=== PATIENT | female | born 1985 | race Caucasian/White ===

== ENCOUNTER 2017-08-22 09:29 | Emergency (ER) | payer OTHER ==
[2017-08-22 09:57] VITALS: BMI 39.3
--- NOTE | 2017-08-22 11:31 | PDOC ---
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 She endorses associated pain and erythema with her abscesses. She presented to [facility] where she was given 2 antibiotics that she has been taking and reports improvement in the redness of the lesions, but reports she came today due to the pain and inability to f/u with surgery referral due to insurance. The patient denies fever or chills. She denies chest pain or shortness of breath. She denies nausea or vomiting. She reports that her sister also has recurrent abscesses in her groin and axilla. Pt is an active smoker. Allergies: Penicillins PCP: Dr. Larissa Engle - Physicial Exam PE: 08/22/17 13:09 agree with resident exam - Medical Decision Making 08/22/17 12:09 32-year-old female presents with recurrent abscesses. Vitals initially remarkable for tachycardia to 104, on my evaluation heart rate is 92. Exam consistent with likely hidradenitis although pt states she has never been diagnosed. Pt states lesions improving with antibiotics, however she presents today due to pain and inability to get f/u with surgery for insurance issues. Case discussed with Dr. Villarreal for definitive management of lesions who states that Dr. Saldaña will see the pt 08/22/17 13:19 Pt offered toradol for pain control, but is very upset at this time waiting for surgery consultation because she wants to eat. She declines toradol. Informed patient that surgery c/s is on her way in to see her, she agrees to stay at this time. 08/22/17 14:23 Surgery c/s not yet arrived. Pt ambulating in the ED, demanding to eat as she is hungry. Pt is cursing and yelling in hallways. Security at bedside, discussed with patient that she can not yell or curse in the ED. Pt also left the ED multiple times to smoke cigarettes as seen by nursing staff. Offered to patient to await surgery c/s until they arrive without being disruptive or we can DC her with a referral for surgery if this is her preference. She chooses to stay at this time. 08/22/17 15:[address] Saldaña from surgery. Pt offered to have I&D in the ED, with VNS to pack it daily for definitive management. Pt states that she will not allow VNS to enter her apartment and declines all current treatment. Dr. Saldaña states that due to the large size of the gluteal abscess, she will need daily packing changes for up to 6 weeks, however she is not amenable to VNS visiting her. Surgery recommends only antibiotics at this time as pt declines all further care. We called the patients pharmacy and found she is on doxy/bactrim which is sufficient coverage per surgery. Pt requests DC. Will provide surgery referral, pt stable and well appearing. Advised her to return if she changes her mind about drainage, and VNS arrangements. I discussed the physical exam findings, ancillary test results and final diagnoses with the patient. I answered all of the patient's questions. The patient felt comfortable with the discharge plan and treatment plan. The patient will call their primary care physician within 24 hours to arrange follow -up and will return to the Emergency Department with any new, persistent or worsening symptoms.
--- NOTE | 2017-08-22 11:35 | PDOC ---
History of Present Illness - General Chief Complaint: Abscess Boil Stated Complaint: ABSCESS Time Seen by Provider: 08/22/17 10:09 - History of Present Illness Initial Comments: 08/22/17 11:23 32 yo F with no significant pmh who p/w abscesses. Patient reports worsening R axilla abscess ( x1 month) with now resolved drainage of the R axilla, resolving and recurring. Patient also reports abscess of R sided gluteal cleft with abscess drainage. Patient with recurrent BL axillary abscess formation x 10 +, intermittent, with spontaneous resolution and recurrence. H/o left abscess I& D. Patient states that this is first time she has had abscess at gluteal region. Endorses increased pain and redness. Recently evaluated at [facility] (08-18-17) and discharged on outpt. antibiotics x 2ABs ( does not recall name ). No I&D performed in ED. Denies F/C, N/V, CP, SOB, abdominal pain, diarrhea, constipation, urinary complaints, weakness, lightheadedness, sensory changes PMHx: as noted above. Denies h/o DM. ROS: as noted above. SHx: Endorses tobacco use 1/2 ppd for 16 years. Denies Etoh, or IVDA. Recreational marijuana use. Allergies: PCN Past History - Past Medical History Allergies/Adverse Reactions: Allergies Allergy/AdvReac Type Severity Reaction Status Date / Time Penicillins Allergy Verified 08/22/17 09:54 Home Medications: Ambulatory Orders Unobtainable [Unobtainable] 08/22/17 - Suicide/Smoking/Psychosocial Hx Smoking History: Current every day smoker Number of Cigarettes Smoked Daily: 20 Information on smoking cessation initiated: Yes Review of Systems - Review of Systems Comments:: 08/22/17 11:35 GENERAL/CONSTITUTIONAL: No fever or chills. No weakness. HEAD, EYES, EARS, NOSE AND THROAT: No change in vision. No ear pain or discharge. No sore throat. CARDIOVASCULAR: No chest pain or shortness of breath RESPIRATORY: No cough, wheezing, or hemoptysis. GASTROINTESTINAL: No nausea, vomiting, diarrhea or constipation. GENITOURINARY: No dysuria, frequency, or change in urination. MUSCULOSKELETAL: No joint or muscle swelling or pain. No neck or back pain. SKIN:+ Abscess. NEUROLOGIC: No headache, vertigo, loss of consciousness, or change in strength/ sensation. ENDOCRINE: No increased thirst. No abnormal weight change HEMATOLOGIC/LYMPHATIC: No anemia, easy bleeding, or history of blood clots. ALLERGIC/IMMUNOLOGIC: No hives or skin allergy. *Physical Exam - Vital Signs Last Vital Signs Temp Pulse Resp BP Pulse Ox 98.2 F 104 H 16 104/78 99 08/22/17 09:54 08/22/17 09:54 08/22/17 09:54 08/22/17 09:54 08/22/17 09:54 - Physical Exam Comments: 08/22/17 11:35 GENERAL: Awake, alert, and fully oriented, in no acute distress HEAD: No signs of trauma, normocephalic, atraumatic EYES: PERRLA, EOMI, sclera anicteric, conjunctiva clear ENT: Hearing grossly normal, nares patent, oropharynx clear without exudates. Moist mucosa NECK: Normal ROM, supple, no lymphadenopathy, JVD, or masses LUNGS: No distress, speaks full sentences, clear to auscultation bilaterally HEART: Regular rate and rhythm, normal S1 and S2, no murmurs, rubs or gallops, peripheral pulses normal and equal bilaterally. EXTREMITIES : Normal inspection, Normal range of motion, no edema. No clubbing or cyanosis. SKIN: Right medial axillary area of erythema, non fluctuant, firm induration measuring 3 x 2 cm, with absent drainage/discharge/bleeding. R sided superior medial gluteal cleft area of area of erythema, non fluctuant, firm induration measuring 4 x 3 cm, with absent drainage/discharge/bleeding. Absent streaking, or lymphadenoapthy. Medical Decision Making - Medical Decision Making 08/22/17 11:38 32 yo F with h/o recurrent abscesses who p/w 3 x 2 cm R medial axillary firm indurated abscess, and 4 x 3 cm R sided superior medial firm induration at gluteal cleft, with absent drainage/discharge/bleeding. VSS,AF, A&Ox3. Will evaluate need to perform I&D. Consult surgery. Patient with absent s/s of systemic infections, SIRS, evidence of end organ dysfunction, or immunocompromised. ED Course: 08/22/17 11:52 U/S performed at bedside. R axilla abscess measuring 0.43 x 1.24 cm, and R sup. gluteal abscess 2.25 cm depth. Patient agitated and yelling obscenities in hallways. 08/22/17 15:48 Patient receiving medications from [facility] 10 day supply of Bactram and doxycycline 100mg. Patient reports medication compliance. Seen by Dr. Villarreal and Dr. Saldaña surgery team, but patient refuses I&D, and refuses VNS. Patient to f/u with surgery. *DC/Admit/Observation/Transfer Diagnosis at time of Disposition: Abscess - Discharge Dispostion Disposition: HOME Condition at time of disposition: Stable Decision to Admit order: No - Referrals Referrals: Larissa Engle MD [Primary Care Provider] - Eligio Stephens MD [Staff Physician] - - Patient Instructions Printed Discharge Instructions: DI for Skin Abscess Additional Instructions: Please return to the emergency department with any new or worsening symptoms or concerns. Please follow up with your primary care physician within 72 hours. Please follow up with surgery within one week. Please continue to take bactram and doxycyline as prescribed. - Post Discharge Activity - Attestations Physician Attestion: 08/22/17 16:30 I attest to the information provided in this note.
[2017-08-22] MEDS: KETOROLAC TROMETHAMINE 30 MG/1 ML VIAL IM ONE ×2 (13:10→13:20)
[2017-08-22] MEDS ORDERED: KETOROLAC TROMETHAMINE 30 MG/1 ML VIAL ONE (13:16)
--- NOTE | 2017-08-22 15:38 | CONSULT ---
Consult Consult Specialty:: General Surgery Reason for Consultation:: Abcess of gluteal cleft and Right axila - History of Present Illness Chief Complaint: Pain swelling in gluteal cleft area and R axilla History of Present Illness: Patient c/o of pain redness and swelling of right axilla and gluteal cleft. Patient with h/o hydraadenitis and pilonidal cyst abscesses. Pateint states that she presented in another ED several days ago and was given Abx, no drainage performed. Patient does not know which aAbx. Patient was very argumentative and vulgar while trying to take a History. - History Source History Provided By: Patient Limitations to Obtaining History: Poor Historian - Past Medical History Endocrine: No: Diabetes Mellitus Dermatology: Yes: Other (chronic hidradenitis and pilonidal cyst abcesses) - Past Surgical History Additional Surgical History: h/o multiple pilonidal and axilla I&D's for abscesses - Smoking History Smoking history: Current every day smoker Aproximately how many cigarettes per day: 20 - Social History Usual Living Arrangement: With Parent Home Medications - Allergies Allergies/Adverse Reactions: Allergies Allergy/AdvReac Type Severity Reaction Status Date / Time Penicillins Allergy Verified 08/22/17 09:54 - Home Medications Home Medications: Ambulatory Orders Amlodipine Besylate 10 mg PO DAILY 08/22/17 Atorvastatin Calcium 10 mg PO HS 08/22/17 Buspirone HCl [Buspar -] 5 mg PO BID 08/22/17 Calcium (Oyster Shell) [Os-Elie 500MG -] 500 mg PO DAILY 08/22/17 Cetirizine HCl 10 mg PO DAILY 08/22/17 Gabapentin 300 mg PO TID 08/22/17 Glimepiride 4 mg PO DAILY 08/22/17 Insulin Glargine,Hum.rec.anlog [Lantus] 20 units SQ DAILY 08/22/17 Levothyroxine [Synthroid -] 50 mcg PO DAILY 08/22/17 Metformin HCl 500 mg PO BID 08/22/17 Metoprolol Tartrate 25 mg PO DAILY 08/22/17 Elsa-3 Fatty Acids [Elsa-3] 1,000 mg PO DAILY 08/22/17 Sitagliptin Phosphate [Januvia] 100 mg PO DAILY 08/22/17 Family Disease History - Family Disease History Family History: Unremarkable Review of Systems - Review of Systems Constitutional: denies: Chills, Fever HENT: denies: Difficult Swallowing, Nasal Congestion Neck: denies: Decreased ROM, Pain on Movement Cardiovascular: denies: Chest Pain, Shortness of Breath Respiratory: denies: Cough, Wheezing Gastrointestinal: denies: Abdominal Pain, Constipation Genitourinary: denies: Discharge, Dysuria Integumentary: reports: Erythema Neurological: denies: Change in LOC, Confusion Endocrine: denies: Excessive Sweating, Flushing Physical Exam Vital Signs: Vital Signs Temperature 98.0 F 08/22/17 13:25 Pulse Rate 76 08/22/17 13:25 Respiratory Rate 20 08/22/17 13:25 Blood Pressure 108/76 08/22/17 13:25 O2 Sat by Pulse Oximetry (%) 98 08/22/17 13:25 Constitutional: Yes: Well Nourished, Obese Eyes: Yes: Conjunctiva Clear, EOM Intact HENT: Yes: Atraumatic, Normocephalic Neck: Yes: Supple, Trachea Midline Cardiovascular: Yes: Other (patient uncooperative with exam) Respiratory: Yes: Other (patient uncooperative with exam) Gastrointestinal: Yes: Soft, Abdomen, Obese ...Rectal Exam: Yes: Deferred Extremities: Yes: Other (patient uncooperative with exam) Integumentary: Yes: Erythema, Other (erythematous fluctuant mass to the right of the gluteal cleft, tender, no drainage) Neurological: Yes: Alert, Oriented (Spontaneously draining R axilla abscess and fluctuant mildly tender R gluteal fold pilonidal abscess with mild surrounding erythema, no drainage) Psychiatric: Yes: Alert, Oriented Labs: None drawn. Imaging - Results Ultrasound: Other (Discussed with ED Atending, 4 cm diameter collection R gluteal fold regoin, not loculated, most likely an abscess) Problem List - Problems (1) Pilonidal cyst with abscess Assessment/Plan: Patient presents to ED with a pilonidal cyst abscess documented on PE and US exam. ED Attending documented a small spontaneously draining R axilla abscess but patient refused to allow me to exam that area. Patient refused to have any wound f/U including VNS stating "she would not let nurses in the house". Patient was uncooperative during the H&P often cursing. She had been to another ED several days with the same complaints ago but could not give a good history and did not know what medications she was given. I explained in layman's terms that she needed an I&D and wound care at [facility] and that she would not be able to reach the wound herslef. I further explained that if she was rufusing wound care, I would not be able to safely perform the I &D knowing that she would not have any followup . Patient stated that she wanted to come to the ED for daily dressing changes but I further explained in laymans' terms that this wound was likely to be very deep and would require daily dressing changes for 4-6 weeks in order to heal by secondary intention. PLan: ED to look up which ABX She was prescribed in the outside ED and to add Bactrim x 7 days if no Abx were prescribed. Patient instructed to RTED for fevers, chills, increased pain drainage of abscess sites. documented Code(s): L05.01 - PILONIDAL CYST WITH ABSCESS (2) Gluteal pain Code(s): M79.1 - MYALGIA
[2017-08-22 16:33] VITALS: BP 112/80; PULSE 89; TEMP 98.4
== END 2017-08-22 16:45 | disposition home or self-care (01) ==
LOC: JER 09:29
DX: L05.01 Pilonidal cyst with abscess (principal); F17.210 Nicotine dependence, cigarettes, uncomplicated
CPT/HCPCS: 99283-25; 99284-25